=== PATIENT | female | born 1985 | race Caucasian/White ===

== ENCOUNTER 2018-02-06 06:57 | Emergency (ER) | payer SELFPAY ==
[~2018-02-06] VITALS: Ht 157.5 cm; Wt 68.1 kg
[2018-02-06] MEDS ORDERED: IBUPROFEN 800MG TABLET PO ONE (08:00)
[2018-02-06 08:35] VITALS: BP 121/82
== END 2018-02-06 08:43 | disposition home or self-care (01) ==
LOC: ER 07:35
DX: N64.4 Mastodynia (principal); E11.9 Type 2 diabetes mellitus without complications
CPT/HCPCS: 81025; 99283